=== PATIENT | female | born 1990 | race Caucasian/White ===

== ENCOUNTER 2021-06-29 13:58 | Emergency (ER) | payer MEDICAID ==
--- NOTE | 2021-06-29 14:45 | EDM.PDOC ---
ED HPI GENERAL MEDICAL PROBLEM - General Chief Complaint: Respiratory Problem Stated Complaint: cough,fever Time Seen by Provider: 06/29/21 14:20 Source of Information: Reports: Patient History Limitations: Reports: No Limitations - History of Present Illness INITIAL COMMENTS - FREE TEXT/NARRATIVE: Patient with cold/viral type complaints. Family member is + for Covid (daughter) but rest of family is similarly ill with Covid type/viral symptoms. Patient first developed a headache this past Wednesday, 5 days ago. Cough/congested started Wednesday. Minimal PO intake the last two days due to nausea, including poor fluid intake. Chest feels tight but not short of breath. Has cough. Achy. Fatigued. Diarrhea. No vomiting. - Related Data Allergies Allergy/AdvReac Type Severity Reaction Status Date / Time cephalexin Allergy Rash Verified 06/29/21 14:02 doxycycline Allergy Rash Verified 06/29/21 14:02 Penicillins Allergy Rash Verified 06/29/21 14:02 Home Meds: Home Meds Benzonatate [Tessalon Perles] 100 mg PO TID PRN #50 cap 06/29/21 [Rx] Ondansetron [Zofran ODT] 4 mg PO Q6H PRN #12 tab.dis 06/29/21 [Rx] Past Medical History - Past Health History Medical/Surgical History: Denies Medical/Surgical History Social & Family History - Family History Family Medical History: No Pertinent Family History - Tobacco Use Tobacco Use Status *Q: Never Tobacco User - Caffeine Use Caffeine Use: Reports: Soda - Alcohol Use Alcohol Use History: No - Recreational Drug Use Recreational Drug Use: No Drug Use in Last 12 Months: No ED ROS GENERAL - Review of Systems Review Of Systems: Comprehensive ROS is negative, except as noted in HPI. ED EXAM, GENERAL - Physical Exam Exam: See Below Exam Limited By: No Limitations General Appearance: Alert, WD/WN, No Apparent Distress, Other (appears tired) Eye Exam: Bilateral Eye: EOMI Ears: Normal External Exam, Normal Canal, Hearing Grossly Normal, Normal TMs Nose: No: Nasal Deformity, Nasal Swelling, Nasal Drainage Throat/Mouth: Normal Oropharynx, Normal Voice, No Airway Compromise Head: Atraumatic, Normocephalic Neck: Normal Inspection, Supple, Non-Tender, Full Range of Motion. No: Lymphadenopathy (L), Lymphadenopathy (R) Respiratory/Chest: No Respiratory Distress, Lungs Clear, Normal Breath Sounds, No Accessory Muscle Use Cardiovascular: No Edema, No Murmur, Tachycardia GI/Abdominal: Normal Bowel Sounds, Soft, Non-Tender, No Distention (Female) Exam: Deferred Rectal (Female) Exam: Deferred Back Exam: No: CVA Tenderness (L), CVA Tenderness (R), Muscle Spasm Extremities: Normal Range of Motion, Non-Tender, No Pedal Edema, Slow Capillary Refill Neurological: Alert, Oriented, CN II-XII Intact, Normal Cognition, Normal Gait, No Motor/Sensory Deficits Psychiatric: Normal Affect, Normal Mood Skin Exam: Warm, Dry, Intact, Normal Color, No Rash Course - Vital Signs Last Recorded V/S: Last Vital Signs Temp 37.7 C 06/29/21 14:12 Pulse 110 H 06/29/21 14:12 Resp 20 06/29/21 14:12 BP 106/70 06/29/21 14:12 Pulse Ox 100 06/29/21 14:12 - Orders/Labs/Meds Orders: Active Orders 24 hr Category Date Time Status RT Post Treatment Assessment [RC] Click to Edit Care 06/29/21 15:01 Active RT Pre-Treatment Assessment [RC] Click to Edit Care 06/29/21 15:01 Active Chest 2V [CR] Stat Exams 06/29/21 13:59 Taken Sodium Chloride 0.9% [Saline Flush] Med 06/29/21 15:00 Active 10 ml FLUSH ASDIRECTED PRN Saline Lock Insert [OM.PC] Routine Oth 06/29/21 15:00 Ordered Medication Orders Sodium Chloride (Sodium Chloride 0.9% 10 Ml Syringe) 10 ml FLUSH ASDIRECTED PRN PRN Reason: Keep Vein Open Labs: Laboratory Tests 06/29/21 06/29/21 06/29/21 Range/Units 14:10 14:10 14:15 WBC 2.9 L (4.0-10.2) K/uL RBC 4.43 (3.77-5.09) M/uL Hgb 12.9 (11.7-15.5) g/dL Hct 39.5 (34.0-46.0) % MCV 89.2 (84.0-98.0) fL MCH 29.1 (28.2-33.3) pg MCHC 32.7 (31.7-36.0) g/dL RDW 13.1 (11.2-14.1) % Plt Count 137 L (150-350) K/uL Neut % (Auto) 59.5 (45.0-80.0) % Lymph % (Auto) 30.8 (10.0-50.0) % [place] % (Auto) 9.4 (2.0-14.0) % Eos % (Auto) 0.0 (0.0-5.0) % Baso % (Auto) 0.3 (0.0-2.0) % Neut # (Auto) 1.70 (1.40-7.00) K/uL Lymph # (Auto) 0.88 (0.50-3.50) K/uL [place] # (Auto) 0.27 (0.00-1.00) K/uL Eos # (Auto) 0.00 (0.00-0.50) K/uL Baso # (Auto) 0.01 (0.00-0.20) K/uL Sodium (136-145) mmol/L Potassium (3.5-5.1) mmol/L Chloride (98-107) mmol/L Carbon Dioxide (21.0-32.0) mmol/L Anion Gap (7-15) meq/L BUN (7-18) mg/dL Creatinine (0.51-1.17) mg/dL Est Cr Clr Drug Dosing mL/min Estimated GFR (MDRD) mL/min Glucose (70-99) mg/dL Calcium (8.5-10.1) mg/dL Total Bilirubin (0.2-1.0) mg/dL AST (15-37) U/L ALT (12-78) U/L Alkaline Phosphatase (46-116) IU/L Total Protein (6.4-8.2) g/dL Albumin (3.4-5.0) g/dL Specimen Type Urinvoid Urine Color Yellow Urine Appearance Clear Urine pH 6.0 (5.0-9.0) Ur Specific [place] >= 1.030 (1.005-1.030) Urine Protein Negative (NEGATIVE) mg/dL Urine Glucose (UA) Negative (NEGATIVE) mg/dL Urine Ketones 15 H (NEGATIVE) mg/dL Urine Occult Blood Negative (NEGATIVE) Urine Nitrite Negative (NEGATIVE) Urine Bilirubin Negative (NEGATIVE) Urine Urobilinogen 0.2 (0.2-1.0) E.U./dL Ur Leukocyte Esterase Negative (NEGATIVE) Influenza Type A RNA Negative (NEGATIVE) RSV RNA (INAAT) Negative (NEGATIVE) Influenza Type B RNA Negative (NEGATIVE) SARS-CoV-2 RNA ([place]) Positive H (NEGATIVE) 06/29/21 Range/Units 14:15 WBC (4.0-10.2) K/uL RBC (3.77-5.09) M/uL Hgb (11.7-15.5) g/dL Hct (34.0-46.0) % MCV (84.0-98.0) fL MCH (28.2-33.3) pg MCHC (31.7-36.0) g/dL RDW (11.2-14.1) % Plt Count (150-350) K/uL Neut % (Auto) (45.0-80.0) % Lymph % (Auto) (10.0-50.0) % [place] % (Auto) (2.0-14.0) % Eos % (Auto) (0.0-5.0) % Baso % (Auto) (0.0-2.0) % Neut # (Auto) (1.40-7.00) K/uL Lymph # (Auto) (0.50-3.50) K/uL [place] # (Auto) (0.00-1.00) K/uL Eos # (Auto) (0.00-0.50) K/uL Baso # (Auto) (0.00-0.20) K/uL Sodium 140 (136-145) mmol/L Potassium 4.1 (3.5-5.1) mmol/L Chloride 105 (98-107) mmol/L Carbon Dioxide 26.1 (21.0-32.0) mmol/L Anion Gap 8.9 (7-15) meq/L BUN 9 (7-18) mg/dL Creatinine 0.86 (0.51-1.17) mg/dL Est Cr Clr Drug Dosing 93.86 mL/min Estimated GFR (MDRD) > 60 mL/min Glucose 97 (70-99) mg/dL Calcium 8.5 (8.5-10.1) mg/dL Total Bilirubin 0.5 (0.2-1.0) mg/dL AST 17 (15-37) U/L ALT 21 (12-78) U/L Alkaline Phosphatase 52 (46-116) IU/L Total Protein 7.6 (6.4-8.2) g/dL Albumin 3.7 (3.4-5.0) g/dL Specimen Type Urine Color Urine Appearance Urine pH (5.0-9.0) Ur Specific [place] (1.005-1.030) Urine Protein (NEGATIVE) mg/dL Urine Glucose (UA) (NEGATIVE) mg/dL Urine Ketones (NEGATIVE) mg/dL Urine Occult Blood (NEGATIVE) Urine Nitrite (NEGATIVE) Urine Bilirubin (NEGATIVE) Urine Urobilinogen (0.2-1.0) E.U./dL Ur Leukocyte Esterase (NEGATIVE) Influenza Type A RNA (NEGATIVE) RSV RNA (INAAT) (NEGATIVE) Influenza Type B RNA (NEGATIVE) SARS-CoV-2 RNA ([place]) (NEGATIVE) Meds: Medications Generic Name Dose Route Start Last Admin Trade Name Cedric PRN Reason Stop Dose Admin Sodium Chloride 10 ml 06/29/21 15:00 Sodium Chloride 0.9% 10 Ml Syringe FLUSH ASDIRECTED PRN Keep Vein Open Discontinued Medications Generic Name Dose Route Start Last Admin Trade Name Cedric PRN Reason Stop Dose Admin Albuterol 0 gm 06/29/21 15:01 06/29/21 15:27 Albuterol 6.7 Gm Inhaler INH 06/29/21 15:02 2 puff ONETIME ONE Administration Benzonatate 200 mg 06/29/21 15:01 06/29/21 15:28 Benzonatate 100 Mg Cap PO 06/29/21 15:02 200 mg ONETIME ONE Administration Sodium Chloride 1,000 mls @ 999 mls/hr 06/29/21 15:00 06/29/21 15:27 Normal Saline IV 06/29/21 16:00 999 mls/hr .BOLUS ONE Administration Sodium Chloride 1,000 mls @ 999 mls/hr 06/29/21 16:00 06/29/21 16:44 Normal Saline IV 06/29/21 17:00 999 mls/hr .BOLUS ONE Administration Ketorolac Tromethamine 15 mg 06/29/21 15:57 11/14/21 16:44 Ketorolac 15 Mg/Ml Sdv IVPUSH 06/29/21 15:58 15 mg ONETIME ONE Administration Ondansetron HCl 4 mg 06/29/21 15:01 06/29/21 15:28 Ondansetron 4 Mg/2 Ml Sdv IVPUSH 06/29/21 15:02 4 mg ONETIME ONE Administration - Radiology Interpretation Free Text/Narrative:: Chest xray shows mild patchy changes bilaterally/viral pattern - Re-Assessments/Exams Free Text/Narrative Re-Assessment/Exam: 06/29/21 15:51 O2 sats on room air 100%, normal respiratory rate. Given tachycardia/slow cap refill, IV NS ordered. Zofran given for nausea. Tessalon and Albuterol MDI for cough/chest tightness. + for Covid. Labs otherwise unremarkable. Plan at this time is to discharge patient after IV fluids. She is to continue Albuterol MDI to help with cough/chest tightness. Extensive precautions reviewed with patient/including return to ER if feeling significantly worse/short of breath. Patient agreeable with plan. Departure - Departure Time of Disposition: 17:57 Disposition: Home, Self-Care 01 Condition: Good Clinical Impression: COVID-19 virus infection, Dehydration - Discharge Information *PRESCRIPTION DRUG MONITORING PROGRAM REVIEWED*: Not Applicable *COPY OF PRESCRIPTION DRUG MONITORING REPORT IN PATIENT JONA: Not Applicable Prescriptions: Benzonatate [Tessalon Perles] 100 mg PO TID PRN #50 cap PRN Reason: Cough Ondansetron [Zofran ODT] 4 mg PO Q6H PRN #12 tab.dis PRN Reason: Nausea Instructions: 10 Things You Can Do to Manage Your COVID-19 Symptoms at Home - [facility] (02/28/2021) Referrals: Emily Butcher PA-C [Primary Care Provider] - Forms: ED Department Discharge Additional Instructions: Use your inhaler 1-2 puffs every 4-6 hours as needed for cough/tightness in chest. Tessalon may help with cough. Zofran one tab every 6-8 hours as needed for nausea. Take Ibuprofen or Aleve or Tylenol to help with aches. Stay hydrated! Follow up for recheck if you experience sudden worsening symptoms, especially increased shortness of breath. Sepsis Event Note (ED) - Evaluation Sepsis Screening Result: No Definite Risk - Focused Exam Vital Signs: Vital Signs Temp Pulse Resp BP Pulse Ox 06/29/21 14:12 37.7 C 110 H 20 106/70 100 - My Orders Last 24 Hours: My Active Orders 06/29/21 13:59 Chest 2V [CR] Stat 06/29/21 15:00 Sodium Chloride 0.9% [Saline Flush] 10 ml FLUSH ASDIRECTED PRN Saline Lock Insert [OM.PC] Routine 06/29/21 15:01 RT Post Treatment Assessment [RC] Click to Edit RT Pre-Treatment Assessment [RC] Click to Edit - Assessment/Plan Last 24 Hours: My Active Orders 06/29/21 13:59 Chest 2V [CR] Stat 06/29/21 15:00 Sodium Chloride 0.9% [Saline Flush] 10 ml FLUSH ASDIRECTED PRN Saline Lock Insert [OM.PC] Routine 06/29/21 15:01 RT Post Treatment Assessment [RC] Click to Edit RT Pre-Treatment Assessment [RC] Click to Edit
[2021-06-29 14:47] LABS: ANION GAP 8.9 meq/L (7-15); CHLORIDE,CL 105 mmol/L (98-107); SODIUM,NA 140 mmol/L (136-145)
[2021-06-29] MEDS ORDERED: Sodium Chloride 0.9% 1,000 ML IV ONE ×2 (15:00→16:00)
[2021-06-29] MEDS ORDERED: Sodium Chloride 0.9% 10 ML Syringe FLUSH PRN (15:00)
[2021-06-29] MEDS ORDERED: Albuterol 6.7 GM Inhaler INH ONE (15:01)
[2021-06-29] MEDS ORDERED: Ondansetron 4 MG/2 ML SDV IVPUSH ONE (15:01)
[2021-06-29] MEDS ORDERED: Benzonatate 100 MG Cap PO ONE (15:01)
[2021-06-29 15:05] LABS: CORONAVIRUS COVID-19 NAA POSITIVE (NEGATIVE)
[2021-06-29 15:06] LABS: RESPIRATORY SYNCYTIAL VIR NAA NEGATIVE (NEGATIVE)
[2021-06-29] MEDS ORDERED: Ketorolac 15 MG/ML SDV IVPUSH ONE (15:57)
== END 2021-06-29 18:10 | disposition home or self-care (01) ==
LOC: LL.ED 13:58
DX: U07.1 COVID-19 (principal); E86.0 Dehydration; Z88.0 Allergy status to penicillin; Z88.1 Allergy status to other antibiotic agents
CPT/HCPCS: 0241U; 36415; 71046; 80053; 81003; 85025; 94640; 96374; 96375; 99284; 99284-25; A9270-GY; J1885; J2405; J7030